=== PATIENT | female | born 1955 | race Two or more races ===

== ENCOUNTER 2024-05-24 13:03 | Outpatient (AMB) | payer OTHER, MEDICAID, SELFPAY ==
--- NOTE | 2024-05-24 13:20 | PD.ORTHCLVIS ---
Vital signs 05/24/24 13:21 Height 1.63 m Height Method Stated Weight 72.575 kg Weight Measurement Method Estimated by Patient BMI 27.3 BP 151/69 H Blood Pressure Source Automatic Cuff Blood Pressure Location Right Upper Arm Position Sitting Respiration 19 Pulse 62 Pulse Source Monitor Temp 97.5 F Temp Source Temporal Artery Scan Pulse Oximetry (%) 96 Oxygen Delivery Method Room Air Med/Allergies Allergies & Medications Allergies No Known Allergies Allergy (Verified 05/24/24 13:22) Medication Reconciliation acetaminophen 325 mg capsule (Tylenol) 325 mg PO QID PRN 05/05/24 [History Confirmed 05/24/24] Subjective Visit Visit for: follow up visit, knee and injections Immunization / Flu Flu Vaccine in the Last 12 Months: No Flu Vaccine Exclusion Criteria: No Exclusion Criteria History of Present Illness Chief complaint: FOLLOW UP/KNEE INJECTION Carmella is a pleasant 69-year-old female with bilateral knee pain and bilateral knee arthritis. She has had pain for several years but is worsened recently in the last 4 months. She has been walker dependent but does stand for transfers. She reports this all started after she had stem cell injections in [place]. Her knee got extremely stiff since then.The pain is affecting her quality life and happiness. She is trying avoid surgery possible. She is never had any injections. She does have a history of polio.She is currently still in physical therapy Personal History Red flag PMH: none Pain Pain level (0-10): 8 Pain duration: WITH MOVEMENT Pain location: inside (medial) Pain quality: aching Pain timing: night and increases with activity Associated signs & symptoms: weakness and stiffness Ambulatory data Ambulatory device: other (specify) (WHEELCHAIR) Treatments Improvement with previous injections: No Improvement with PT: No Improvement with NSAIDS: no Review of Systems Review of Systems: All systems negative unless otherwise noted in HPI. Exam Exam Patient is in no acute distress and is cooperative with the examination today. Breathing is nonlabored. In no respiratory distress. Bilateral extremities were evaluated and demonstrates sensation intact to light touch. Palpable pedal pulses are present. No significant edema is present. Bilateral hips were examined. The patient has no pain with log roll of the hips. Internal rotation to 30 degrees and external rotation to 30 degrees is painless. Negative FADIR. The left knee was examined. The left knee is in [varus] alignment. Range of motion from [10-115] degrees. Knee is stable to varus and valgus as well as AP translation with <5mm. Patient has a [negative] McMurrays. There is [no] pain with patellofemoral compression and [no] crepitus noted. The knee is [tender] to palpation [medially]. The right knee was also examined. The right knee is in [varus] alignment. Range of motion from [15-120] degrees. Knee is stable to varus and valgus as well as AP translation with <5mm. Patient has a [negative] McMurrays. There is [no] pain with patellofemoral compression and [no] crepitus noted. The knee is [tender] to palpation [medially]. Patient has an MRI reports which demonstrates significant joint space narrowing and arthritis. There are some degenerative meniscal tears Assessment and Plan Problem List (1) Degenerative arthritis of knee, bilateral: Status: Acute Plan: Patient is a 69-year-old female with a history of polio with bilateral knee pain and bilateral knee arthritis. Weightbearing x-rays demonstrate severe arthritis bilaterally. We can do conservative treatment first. We will try bilateral knee injections today and recommend continued physical therapy Recommend knee cortisone injections as patient would like to proceed with conservative treatment at this time. The risks and benefits of the procedure were reviewed with the patient and patient gave verbal consent to continue with the procedure. Procedure: performed by Dr. Del Castillo Using sterile technique the Bilateral knees were thoroughly prepped with alcohol, and approximately 1 cc of Kenalog 40 mg/mL and 4 cc of 1% lidocaine was injected into each knee without resistance into the medial tibial femoral joint space. The patient tolerated the procedure. Advanced Care Planning Discussion Advance care planning discussed with:: patient Office Procedures GNS Level of Care Nursing/Assessment Patient Status: Established Patient Nursing Assessment/Reassesment: Medication Reconciliation, Update PMH in EMR and Vital Signs Coordination of Care: Complex Care and Chronic Disease 1-5, Education Complex Pt/Fam, Consent,records obtained, informed consent, 1 Ins Authorization and Staff clarify orders Special Needs: Language special needs Established Patient Charge Established Patient Point Assignment: 105 Established Patient Point Charge: EP Level 3 (80-115) Surgical Proc/IM SQ injection Major Surgical Procedure: Yes (BILATERAL KNEE INJECTION) Medication Given Medication Given Medication Given: Yes Documented Dose Given: 8 Route: Infiitration Medication Given Medication Given Medication Given: Yes Documented Dose Given: 2 Route: Infiitration Office Meds Xylocaine 10 mg/mL (1 %) injection solution Performing Provider: Hank Del Castillo MD Performing Location: [facility] Administered by: Hank Del Castillo MD on 05/24/24 15:53 Dose Route Admin Location Dispensed Lot Number Expiration Date [facility] [employer] 40 mL Infiltration 40 mL [id number] [employer] triamcinolone acetonide 40 mg/mL suspension for injection Performing Provider: Hank Del Castillo MD Performing Location: [facility] Administered by: Hank Del Castillo MD on 05/24/24 15:53 Dose Route Admin Location Dispensed Lot Number Expiration Date [facility] [employer] 80 mg intra-articular 2 mL [id number] [employer] Past Medical History Past Medical History Have you ever been diagnosed with any of the following: Respiratory Problems Smoking: No Smoking Exposure: No
[2024-05-24 13:21] VITALS: BP 151/69; PULSE 62; RESP 19; TEMP 36.4; O2SAT 96; BMI 27.3
== END 2024-05-24 14:12 | disposition home or self-care (01) ==
PROVIDERS: PCP Family Medicine; Referring Provider Family Medicine; Supervising Provider Orthopaedic Surgery Adult Reconstructive Orthopaedic Surgery; Visit Provider Orthopaedic Surgery Adult Reconstructive Orthopaedic Surgery
DX: M17.0 Bilateral primary osteoarthritis of knee (principal); M25.562 Pain in left knee; M25.561 Pain in right knee; Z86.12 Personal history of poliomyelitis
CPT/HCPCS: 20610; 99213; J3301; J3490; G0463

== ENCOUNTER → 2024-08-04 | Outpatient (CLI) | payer OTHER, MEDICAID, SELFPAY ==
--- NOTE | 2024-08-04 14:35 | XR_ITS ---
Examination: Bilateral hips, AP pelvis, 5 views Technique: AP, lateral views both hips, AP pelvis, 5 views Exam date and time: August 04, 2024 1439 hours INDICATIONS: Bilateral hip pain months FINDINGS: Moderate osteopenia Mild to moderate bilateral hip osteoarthritis more severe left hip No hip fractures or hip dislocations Calcifications the right pelvis likely fibroid degeneration No avascular necrosis IMPRESSION: Mild to moderate bilateral hip osteoarthritis
== END | disposition home or self-care (01) ==
LOC: SDIM 14:16
PROVIDERS: PCP Nurse Practitioner Family; Referring Provider Orthopaedic Surgery; Visit Provider Orthopaedic Surgery
DX: M16.0 Bilateral primary osteoarthritis of hip (principal)
CPT/HCPCS: 73522

== ENCOUNTER → 2024-09-30 | Outpatient (CLI) | payer OTHER, MEDICAID, SELFPAY ==
--- NOTE | 2024-09-30 09:00 | XR_ITS ---
Exam: MRI knee without contrast, right Date and time of exam: September 30, 2024 0931 hours INDICATIONS: Anterior knee pain stiffness swelling instability years, worse the last 6 months Technique: Multiple axial, coronal, and sagittal sections on the knee have been obtained. T2-Weighted sagittal, fat-suppressed images, TR 3,500, TE 62, T2 weighted coronal fat-saturated images, TR 3,500, TE 62 Proton density sagittal sections, TR 1800, TE 31. T-1 weighted coronal images, TR 524, TE 13.0 Findings: Medial meniscus anterior horn truncation anterior margin. Medial meniscus, body oblique linear tear. Posterior horn medial meniscus severe truncation inner margin complex tears. Lateral meniscus anterior horn is intact Lateral meniscus, body is intact Posterior horn lateral meniscus is intact Anterior cruciate ligament high-grade sprain Posterior cruciate ligament appears intact. Knee effusion is small. Quadriceps and patellar tendons appear intact. There is no evidence of tendinosis. Inflammatory change or fracture of Hoffa's fat pad is not seen. Medial patellar facet demonstrates severe thinning. Lateral patellar facet cartilage demonstrates severe thinning. Trochlear cartilage demonstrates severe thinning. Marrow signal adequate. Medial collateral ligament appears intact. No meniscocapsular separation is seen. Illiotibial band and fibular collateral ligament are intact. Biceps femoris tendons appear intact. Medial femoral condylar articular cartilage demonstrates severe thinning. Lateral femoral condylar articular cartilage demonstratesmoderate thinning. Tibial plateau cartilage demonstrates severe medial thinning. Impression: Extensive medial meniscus tears High-grade sprain anterior cruciate ligament Severe thinning cartilage patellofemoral and medial joint spaces
== END | disposition home or self-care (01) ==
PROVIDERS: PCP Nurse Practitioner Family; Referring Provider Orthopaedic Surgery; Visit Provider Orthopaedic Surgery
DX: S83.241A Other tear of medial meniscus, current injury, right knee, initial encounter (principal); S83.511A Sprain of anterior cruciate ligament of right knee, initial encounter; X58.XXXA Exposure to other specified factors, initial encounter
CPT/HCPCS: 73721

== ENCOUNTER → 2024-10-03 | Outpatient (CLI) | payer OTHER, MEDICAID, SELFPAY ==
--- NOTE | 2024-10-03 15:38 | XR_ITS ---
Examination: Bilateral AP knees standing single view AP lateral right and left knees total 4 views Exam date and time: October 03, 2024 1506 hrs. Indications: Bilateral knee pain beginning 8 months ago. Findings: Prominent osteopenia Moderate narrowing medial joint space right knee No fracture or dislocation Moderate to advanced osteoarthritis right patellofemoral joint Impression: Moderate narrowing medial joint space right knee Moderate to advanced osteoarthritis right patellofemoral joint
== END | disposition home or self-care (01) ==
LOC: SDIM 15:28
PROVIDERS: PCP Nurse Practitioner Family; Referring Provider Orthopaedic Surgery; Visit Provider Orthopaedic Surgery
DX: M17.11 Unilateral primary osteoarthritis, right knee (principal); M25.861 Other specified joint disorders, right knee
CPT/HCPCS: 73565